=== PATIENT | female | born 1955 | race Caucasian/White ===

== ENCOUNTER 2016-10-05 16:51 | Emergency (ER) | payer OTHER ==
[~2016-10-05] VITALS: Ht 167.6 cm; Wt 59.0 kg
[~2016-10-05 16:51] MED LIST: CITA20TA9 PO; ONDA4TAB10 SL
[2016-10-05 16:58] VITALS: TEMP 36.5; Ht 167.6 cm; Wt 59.0 kg
[2016-10-05] MEDS ORDERED: IBUPROFEN 800 MG TAB PO STA (17:15)
[2016-10-05] MEDS ORDERED: CITA40TA4 PO (17:23)
--- NOTE | 2016-10-05 18:09 | EMERGENCY ROOM VISIT NOTE ---
ED Visit Note First contact with patient: 17:04 CHIEF COMPLAINT: Right Foot/ankle pain HISTORY OF PRESENT ILLNESS: This 60-year-old female patient presents to the emergency department via wheelchair complaining of swelling and pain in the right foot and ankle at rest and worse with movement and weight bearing. The patient states the pain began after falling off of a sidewalk and turning her ankle inward. Patient states she then fell onto her right side but denies other injury. Patient is a nurse at [employer] and states she continued to eat lunch and go back to work. She spent most of the afternoon sitting with her foot elevated upon rising around 1500 hrs. she noticed significant pain and difficulty with ambulation. The patient rates the pain as throbbing and dull at rest and shooting with movement and 7-8/10. The patient has no relief of the pain but has not taken any medication because she did not want to mask the pain. The patient is able to walk, however ambulation is significantly limited due to pain so she presents via wheelchair. No numbness or weakness. She does complain of ankle pain. There are no lacerations of the foot. The patient is able to move all of their toes and their ankle, but with pain. No previous fracture to this foot. REVIEW OF SYSTEMS: GENERAL: A 6 system review of systems was completed with positives and pertinent negatives in the HPI. ALLERGIES: None MEDICATIONS: Citalopram PMH: Depression, migrating joint pains. Possible work-up by PCP for lyme disease. SOCIAL HISTORY: Pt. lives locally with her family. She does admit to one glass of wine per night, but denies other alcohol, drug, or tobacco use. PHYSICAL EXAM: Vital Signs: Reviewed Nurse's notes, vital signs stable. GENERAL : 60-year-old female, in no acute distress, but appears in pain, well-developed , well-nourished. MUSCULOSKELATAL: There is no visual deformity of the right foot. There is no erythema or ecchymosis. There is no warmth. There is tenderness and swelling over the lateral aspect of the right ankle and superior aspect of the right foot. There is tenderness over the lateral malleolus, but not over the medial malleolus. No tenderness of the tib/fib. The range of motion of the right foot and ankle is apparently limited secondary to pain. There is no tenderness over the plantar fascia. The skin is intact and there are no lacerations or puncture wounds. Dorsalis pedis pulse 2+. Capillary refill less than 2 seconds. EMERGENCY DEPARTMENT COURSE: I examined the patient. An X-ray of the right ankle and foot was reviewed by myself and Dr. Garduno. Right ankle/foot xray findings: Plantar heel spur. Soft tissue and bony bunion. The bones are osteopenic. No fracture or dislocation within the right ankle or right foot. IMPRESSION: No fracture or dislocation within the right ankle or right foot. The patient was placed in a boot and instructed on the use of crutches. The patient was discharged home in good condition. DIAGNOSIS: Foot and ankle pain DIFFERENTIAL DIAGNOSIS: contusion, fracture, ankle sprain or strain, foot sprain or strain. TREATMENT: Ice and elevation for 24-48 hrs. Ibuprofen, 600mg and Tylenol 1000 mg every 6 hours for the pain. Avoid weight bearing and use crutches and post- op shoe until the pain subsides and you can walk without a limp. Follow up with family doctor or orthopedic surgeon if symptoms persist in 5-7 days. Problem List Medical Problems: (1) Depression Status: Chronic Current/Historical Medications Scheduled Citalopram (Citalopram Hydrobromide), 40 MG PO QAM Scheduled PRN Ibuprofen Tab (Motrin), 600 MG PO Q6H PRN for Pain Allergies Coded Allergies: No Known Allergies (Unverified , 04/19/16) Vital Signs Date Time Temp Pulse Resp B/P (MAP) Pulse Ox O2 Delivery O2 Flow Rate FiO2 10/05/16 16:58 36.5 66 18 127/81 97 Room Air Medications Administered Medications (Trade) Dose Ordered Sig/Donato Route Start Time Stop Time Status Last Admin Dose Admin Ibuprofen (Motrin Tab) 800 mg NOW STAT PO 10/05/16 17:15 10/05/16 17:19 DC 10/05/16 17:32 800 MG Departure Information Impression Primary Impression: Right ankle pain Additional Impression: Right foot pain Dispostion Home / Self-Care Condition GOOD Prescriptions Ibuprofen Tab (MOTRIN) 600 Mg Tab 600 MG PO Q6H Y for Pain, #60 TAB Prov: Consuelo Kennedy PA-C 10/05/16 Referrals Brittani Carr DMoOMo (PCP) John Lopez D.O. Patient Instructions My [facility] Additional Instructions ORTHOPEDIC INSTRUCTIONS: Ibuprofen(Motrin, Advil) may be used for fever or pain. Use 600mg every six hours as needed. Take with food. Avoid using more than 2400mg in a 24 hour period. Do not use 2400mg per day for more than three consecutive days without physician direction. Prolonged inappropriate use can lead to stomach upset or ulcers. (AND/OR) Acetaminophen(Tylenol) may be used for fever or pain. Use 1000mg every six hours as needed. Avoid using more than 4000mg in a 24 hour period. Ice compresses for 20 minutes at a time four times daily for 2-3 days. Use the crutches as instructed. Rest and elevate your injury. Do not get the boot wet. If your boot feels excessively tight, you have worsening pain, develop numbness or tingling, or your digits appear blue, loosen the boot. If your symptoms are not quickly relieved return to the ER for re-evaluation. Return to the ER immediately for any numbness, tingling, severe pain, extreme swelling in the extremity or as needed. Call [facility], [phone], in 2-3 days to arrange follow up for your injury if no improvement. Follow-up with your primary care physician in 2 to 3 days for a recheck of your current condition. Problem Qualifiers Primary Impression: Right ankle pain Chronicity: acute Qualified Codes: M25.571 - Pain in right ankle and joints of right foot
--- NOTE | 2016-10-05 18:16 | DIAGNOSTIC IMAGING REPORT ---
RIGHT FOOT MIN 3 VIEWS ROUTINE, RIGHT ANKLE MIN 3 VIEWS ROUTINE CLINICAL HISTORY: right foot pain, s/p fall Right. Right ankle pain. COMPARISON STUDY: None. FINDINGS: Plantar heel spur. Soft tissue and bony bunion. The bones are osteopenic. No fracture or dislocation within the right ankle or right foot. IMPRESSION: No fracture or dislocation within the right ankle or right foot. Electronically signed by: Jorge Garduno M.D. 10/05/2016 6:15 PM Dictated Date/Time: 10/05/2016 6:12 PM
[2016-10-05] MEDS ORDERED: IBUP-1427 PO (18:56)
[2016-10-05 19:23] VITALS: BP 130/51; PULSE 66; O2SAT 97
== END 2016-10-05 19:37 | disposition home or self-care (01) ==
LOC: C.EDB 16:54 → C.EDD 19:37
DX: M25.571 Pain in right ankle and joints of right foot (principal); M79.671 Pain in right foot; W10.1XXA Fall (on)(from) sidewalk curb, initial encounter; Z79.899 Other long term (current) drug therapy; F32.9 Major depressive disorder, single episode, unspecified